=== PATIENT | female | born 1985 | race African-American/Black ===

== ENCOUNTER 2016-12-26 05:03 | Emergency (ER) | payer MEDICAID ==
[~2016-12-26] VITALS: Ht 170.2 cm; Wt 113.0 kg
[2016-12-26] MEDS ORDERED: LORAZEPAM 1MG TABLET PO ONE (07:15)
[2016-12-26 07:27] LABS: BASOPHILS % 0.8 % (0.0-2.0); EOSINOPHILS % 0.8 % (0.0-5.0); HEMATOCRIT. 38.5 % (36.0-48.0); HEMOGLOBIN. 12.7 g/dL (12.0-16.0); LYMPHOCYTES % 31.2 % (20.0-50.0); MEAN CORPUSCULAR HEMOGLOBIN 27.5 pg (28.0-32.0); MEAN CORPUSCULAR VOLUME 83.2 fL (81.0-99.0); MEAN PLATELET VOLUME 8.3 fl (7.4-10.4); MONOCYTES % 11.3 % (2.0-8.0); NEUTROPHILS % 55.9 % (40.0-76.0); PLATELET 272 x1000/uL (130-400); RED BLOOD CELL COUNT 4.62 mill/uL (4.2-5.4); RED CELL DISTRIBUTION WIDTH 13.8 % (11.6-14.6)
[2016-12-26 07:38] LABS: HCG SCREEN NEGATIVE
[2016-12-26 07:41] LABS: CARBON DIOXIDE 23 mEq/L (21-32); CHLORIDE 107 mEq/L (98-107)
[2016-12-26 08:02] LABS: GLUCOSE URINE NEGATIVE (NEGATIVE); KETONES URINE NEGATIVE (NEGATIVE); LEUKOCYTE ESTERASE URINE 2+ (NEGATIVE); NITRITE URINE NEGATIVE (NEGATIVE); OCCULT BLOOD URINE NEGATIVE (NEGATIVE); PH URINE 5.5 (4.5-8.0); PROTEIN URINE NEGATIVE (NEGATIVE); SPECIFIC GRAVITY URINE 1.017 (1.005-1.030); UROBILINOGEN URINE 0.2 E.U./dL (0.2-1.0)
[2016-12-26 08:07] LABS: CLARITY URINE SL HAZY (CLEAR); COLOR URINE YELLOW (YELLOW)
[2016-12-26] MEDS ORDERED: AZITHROMYCIN 500 MG TABLET PO ONE (10:45)
[2016-12-26] MEDS ORDERED: CEFTRIAXONE SODIUM 250 MG/VIAL IM ONE (10:45)
[2016-12-26] MEDS ORDERED: LIDOCAINE HCL 1% 20ML VIAL (Pyxis) INJ INFIL ONE (10:45)
[2016-12-26 11:30] VITALS: BP 127/68
[2016-12-29 04:16] LABS: CHLAMYDIA TRACHOMATIS NAA Negative (Negative); NEISSERIA GONORRHOEAE NAA Negative (Negative)
== END 2016-12-26 11:30 | disposition home or self-care (01) ==
LOC: ER 05:15
DX: N76.0 Acute vaginitis (principal); F17.200 Nicotine dependence, unspecified, uncomplicated; F12.10 Cannabis abuse, uncomplicated
CPT/HCPCS: 36415; 80053; 81001; 84703; 85025; 87210; 87491; 87591; 96372; 99284; J0696; J3490

== ENCOUNTER 2017-04-05 17:37 | Emergency (ER) | payer MEDICAID ==
[~2017-04-05] VITALS: Ht 165.1 cm; Wt 68.0 kg
[2017-04-05 17:38] VITALS: BP 110/80
== END 2017-04-05 19:36 | disposition left against medical advice (07) ==
LOC: ER 17:37
DX: R53.1 Weakness (principal); Z53.21 Procedure and treatment not carried out due to patient leaving prior to being seen by health care provider

== ENCOUNTER 2024-04-13 23:49 | Emergency (ER) | payer MEDICAID ==
[~2024-04-13] VITALS: Ht 162.6 cm; Wt 138.2 kg
[2024-04-14 00:39] VITALS: TEMP 97.9; O2SAT 99
[2024-04-14 01:00] LABS: CLARITY URINE CLEAR (CLEAR); COLOR URINE YELLOW (YELLOW); GLUCOSE URINE NEGATIVE (NEGATIVE); KETONES URINE NEGATIVE (NEGATIVE); LEUKOCYTE ESTERASE URINE TRACE (NEGATIVE); NITRITE URINE NEGATIVE (NEGATIVE); OCCULT BLOOD URINE NEGATIVE (NEGATIVE); PROTEIN URINE NEGATIVE (NEGATIVE); SPECIFIC GRAVITY URINE 1.013 (1.005-1.030); UROBILINOGEN URINE 0.2 E.U./dL (0.2-1.0)
[2024-04-14 04:21] LABS: SQUAMOUS EPITHELIAL CELL URINE 1+ /lpf (RARE/1+)
[2024-04-14 04:25] LABS: RBC URINE 0-2 /hpf (0-2); WBC URINE 0-2 /hpf (0-2)
[2024-04-14 04:26] LABS: BACTERIA URINE 1+
[2024-04-14] MEDS ORDERED: NAPR-1176 MT (04:42)
[2024-04-14 04:46] VITALS: BP 120/66; PULSE 86; RESP 16; O2SAT 100
== END 2024-04-14 04:49 | disposition home or self-care (01) ==
LOC: ER 23:49
DX: D25.9 Leiomyoma of uterus, unspecified (principal); F12.90 Cannabis use, unspecified, uncomplicated
CPT/HCPCS: 76830; 76856; 81003; 81025; 99284

== ENCOUNTER 2024-05-22 22:19 | Emergency (ER) | payer MEDICAID ==
[~2024-05-22] VITALS: Ht 162.6 cm; Wt 140.6 kg
[~2024-05-22 22:19] MED LIST: NAPR-1176 MT
[2024-05-22 22:24] VITALS: O2SAT 99
[2024-05-22 22:39] VITALS: BP 157/79; PULSE 96; RESP 16; TEMP 98.9; O2SAT 100
[2024-05-23] MEDS: IBUPROFEN 600MG TABLET PO ONE (03:12)
[2024-05-23 03:47] LABS: BASOPHILS % 0.6 % (0.0-2.0); EOSINOPHILS % 2.3 % (0.0-5.0); HEMATOCRIT. 37.7 % (36.0-48.0); MEAN CORPUSCULAR HEMOGLOBIN 27.1 pg (28.0-32.0); MEAN CORPUSCULAR HGB CONC 31.8 g/dL (31.0-37.0); MEAN PLATELET VOLUME 8.4 fl (7.4-10.4); MONOCYTES % 13.6 % (2.0-8.0); NEUTROPHILS % 45.5 % (40.0-76.0); PLATELET 266 x1000/uL (130-400); RED BLOOD CELL COUNT 4.43 mill/uL (4.2-5.4); RED CELL DISTRIBUTION WIDTH 14.1 % (11.6-14.6); WHITE BLOOD COUNT 7.7 x1000/uL (4.5-11.0)
[2024-05-23 03:52] LABS: CHLORIDE 107 mEq/L (98-107); POTASSIUM 4.3 mEq/L (3.5-5.1); SODIUM 138 mEq/L (136-145)
[2024-05-23 03:53] LABS: CARBON DIOXIDE 28 mEq/L (21-32)
[2024-05-23 03:54] LABS: CALCIUM 9.6 mg/dL (8.7-10.4)
[2024-05-23 03:58] LABS: CREATININE 0.9 mg/dL (0.6-1.0); GLUCOSE 98 mg/dL (70-105); UREA NITROGEN BLOOD 18 mg/dL (9-23)
[2024-05-23 04:44] LABS: TROPONIN I HIGH SENSITIVITY < 4 ng/L (3.0-34)
[2024-05-23] MEDS ORDERED: PSEU120T56 MT (04:54)
== END 2024-05-23 05:45 | disposition home or self-care (01) ==
LOC: ER 22:19
DX: H92.02 Otalgia, left ear (principal); J02.9 Acute pharyngitis, unspecified; R07.89 Other chest pain; J45.909 Unspecified asthma, uncomplicated
CPT/HCPCS: 36415; 71045; 80048; 83880; 84484; 85025; 93005; 99285